=== PATIENT | female | born 1970 | race Caucasian/White ===

== ENCOUNTER → 2023-07-03 | Outpatient (CLI) | payer OTHER ==
[2023-07-05 02:07] LABS: RUBEOLA (MEASLES) IGG >300.0 AU/mL (Immune >16.4); VARICELLA ZOSTER IGG AB TITER 687 index (Immune >165)
== END | disposition home or self-care (01) ==
LOC: LABMN 14:29
PROVIDERS: ATTEND Internal Medicine
DX: Z02.1 Encounter for pre-employment examination (principal)
CPT/HCPCS: 86706; 86735; 86762; 86765; 86787